=== PATIENT | female | born 1970 | race Caucasian/White ===

== ENCOUNTER 2016-09-26 13:38 | Emergency (ER) | payer OTHER ==
--- NOTE | 2016-10-11 15:27 | ER ---
ADMIT: 09/26/2016 RM/LOC: ER [facility] MR#: [id number] [address] [id number] [place] [address] [place] [address] Emergency Room Report SEX: F AGE: 46 : 1970 DATE: 09/26/2016 ADDENDUM: A 46-year-old white female, who had a syncopal episode. I think this was more vasovagal. She was lifting a box like and then she went down. At this time, there is no injury. CBC, chemistry, and serum all negative. Chest x-ray negative as well as her EKG. Initially, seen by the [facility], refer to her T sheet. Other than that, discharged home. Follow up as needed. CONDITION ON DISCHARGE: Good. Gokul Salcido MD/ mag JOB #: [id number] CC: Gokul Salcido MD, Attending Physician Charisma Al MD, Family Physician
== END 2016-09-26 16:30 | disposition home or self-care (01) ==
LOC: ER 13:38
DX: R55 Syncope and collapse (principal); R42 Dizziness and giddiness